=== PATIENT | male | born 1985 | race Caucasian/White ===

== ENCOUNTER 2023-11-21 15:45 | Emergency (ER) | payer OTHER, SELFPAY ==
[2023-11-21 15:54] VITALS: BP 117/106; PULSE 71; TEMP 36.8; O2SAT 99; BMI 25.7
--- NOTE | 2023-11-21 15:57 | XR_ITS ---
The [address] [address] Patient Name: COLLETTE TROY MRN: [id number] date: 1985 Sex: M Assigned Patient Location: ER Current Patient Location: ER Accession/Order Number: [id number] Exam Date: 11/21/2023 16:29 Report Date: 11/21/2023 17:11 At the request of: NGOZI GOINS Procedure: XR hand LT min 3V EXAM: XR hand LT min 3V HISTORY: laceration COMPARISON: 07/13/2018 TECHNIQUE: 3 views of the left hand were obtained. FINDINGS: There is no evidence of an acute fracture or dislocation. The joint spaces are intact. No significant osseous abnormality is identified. Bandaging is seen at the thumb. No radiopaque foreign body is identified. XR/XR hand LT min 3V IMPRESSION: No acute fracture or dislocation. The joint spaces are intact. No radiopaque foreign bodies identified. The overall appearance has not changed significantly. Electronically authenticated by: BRAD BUCHANAN Date: 11/21/2023 17:11
[2023-11-21] MEDS: LIDOCAINE HCL 1% 100 MG/10 ML MDV INJ (17:25)
[2023-11-21] MEDS: BACITRACIN 0.9 GM PACKET 1 PACKET TOPICAL (17:25)
--- NOTE | 2023-11-21 17:37 | ED_ITS ---
HPI - Wound/Laceration General Chief Complaint: Wound/Laceration Stated Complaint: Laceration Time Seen by Provider: 11/21/23 16:56 Source: patient Mode of arrival: walk-in Limitations: no limitations History of Present Illness HPI narrative: Patient is a 38-year-old male who presents to the emergency department for evaluation of a left thumb laceration. Patient is left-hand dominant. He states he was helping a family member move a refrigerator when his finger got caught on a bolt. Bleeding is well-controlled at this time. Unknown last tetanus. No other associated injuries. Related Data Previous Rx's ?Medication ?Instructions ?Recorded cephalexin 500 mg capsule 500 mg PO Q8H 5 days #15 caps 11/21/23 ibuprofen 800 mg tablet 800 mg PO Q8H PRN pain #15 tabs 11/21/23 Allergies Allergy/AdvReac Type Severity Reaction Status Date / Time No Known Drug Allergies Allergy Verified 11/21/23 15:54 Review of Systems ROS Constitutional Denies: fever or chills Ears, nose, mouth, and throat Denies: throat pain or nasal congestion Respiratory Denies: shortness of breath Gastrointestinal Denies: nausea or vomiting Musculoskeletal Reports: extremity pain; Denies: back pain or neck pain Integumentary/Breast Denies: rash Hematologic/Lymphatic Denies: easy bruising or easy bleeding Exam Narrative Exam Narrative: Gen.: Awake, alert, in no distress Head: Normocephalic, atraumatic ENT: Moist mucous membranes Respiratory: No respiratory distress Extremities: Moves extremities equally, 3 cm L-shaped laceration over the IP joint on the dorsum of the left thumb. Normal flexion and extension at the IP joint with no evidence of tendon laceration or deficit on exam. No active bleeding Psych: Normal mood and affect Neuro: No focal neuro deficit Skin: Warm, dry Constitutional Vital Signs, click to edit/add: Last Vital Signs Temp 98.2 F 11/21/23 15:54 Pulse 71 11/21/23 15:54 Resp 18 11/21/23 15:54 BP 117/106 H 11/21/23 15:54 Pulse Ox 99 11/21/23 15:54 O2 Del Method Room Air 11/21/23 15:54 Course Vital Signs Vital signs: Vital Signs Temperature 98.2 F 11/21/23 15:54 Pulse Rate 71 11/21/23 15:54 Respiratory Rate 18 11/21/23 15:54 Blood Pressure 117/106 H 11/21/23 15:54 Pulse Oximetry 99 11/21/23 15:54 Oxygen Delivery Method Room Air 11/21/23 15:54 Temperature 98.2 F 11/21/23 15:54 Pulse Rate 71 11/21/23 15:54 Respiratory Rate 18 11/21/23 15:54 Blood Pressure 117/106 H 11/21/23 15:54 Pulse Oximetry 99 11/21/23 15:54 Oxygen Delivery Method Room Air 11/21/23 15:54 MDM - Wound/Laceration MDM Narrative Medical decision making narrative: X-rays obtained that are unremarkable. Laceration repaired without difficulty. Please see procedure note for details. Tetanus updated in the ER. Follow-up in 7 to 10 days for suture removal and return to the emergency department if symptoms change or worsen SUPERVISED APC VISIT, PHYSICIAN ATTESTATION: Based on the medical record the care appears appropriate. ?Laceration repair: Done under sterile conditions. The use of Shur-Clens prep the area. Local injection with lidocaine 1% was used, approximately 3 cc. The wound was irrigated copiously with normal saline. The wound was explored there was no evidence of foreign material. The laceration was approximated with 4-0 nylon. 5 simple interrupted sutures were placed. Patient tolerated the procedure well. The patient was neurovascularly intact post. the patient had bacitracin applied to the laceration and a dry sterile dressing was place. The patient will need to follow-up in the next 7-10 days for removal Medical Records Attestation: I reviewed the patient's medical records. Imaging Data XR hand: Attestation: I have reviewed the pertinent imaging results. Radiologist's impression: ITS Impressions Hand X-Ray 11/21/23 15:57 IMPRESSION: No acute fracture or dislocation. The joint spaces are intact. No radiopaque foreign bodies identified. The overall appearance has not changed significantly. Electronically authenticated by: BRAD BUCHANAN Date: 11/21/2023 17:11 Discharge Plan Discharge Stand Alone Forms: Portal Instructions Chief Complaint: Wound/Laceration Clinical Impression: Laceration of left thumb Patient Disposition: Home, Self-Care Time of Disposition Decision: 17:35 Condition: Good Prescriptions / Home Meds: New cephalexin 500 mg capsule 500 mg PO Q8H 5 Days Qty: 15 0RF ibuprofen 800 mg tablet 800 mg PO Q8H PRN (Reason: pain) Qty: 15 0RF Print Language: Trinidadian Instructions: Finger Laceration (ED) Additional Instructions: Sutures removed in 7-10 days Referrals: Physician,Non-Staff, MD [Primary Care Provider] - 1 week
[2023-11-21] MEDS: ADACEL DIPH,PERTUSS(ACELL),TET VAC/PF 0.5 ML ADULT SYRINGE IM (17:42)
== END 2023-11-21 17:50 | disposition home or self-care (01) ==
PROVIDERS: Emergency Provider Emergency Medicine
DX: S61.012A Laceration without foreign body of left thumb without damage to nail, initial encounter (principal); Z23 Encounter for immunization; W45.8XXA Other foreign body or object entering through skin, initial encounter
CPT/HCPCS: 12002; 73130; 90471; 90715; 99283

== ENCOUNTER 2024-08-23 11:53 | Emergency (ER) | payer OTHER, SELFPAY ==
--- OUTSIDE RECORDS SUMMARY | 2020-01-23 20:12 | XMS_ITS | Continuity of Care Document ---
Author Organization [facility] Address [address] [place] [address] Phone Care Team Providers Care Trash Man Name Role Phone Pavlock DO, Max Unavailable Unavailable Allergies, Adverse Reactions, Alerts Substance Reaction Status Criticality PENICILLIN Active No Information codeine Active No Information Medications Medication Instructions Dosage Effective Dates (start - stop) Status Comments folic acid 1 mg tablet 1 tablet by mouth daily as needed - Active omeprazole 20 mg capsule,delayed release 1 tablet by mouth daily as needed - Active thiamine HCl (vitamin B1) 100 mg tablet 1 tablet by mouth daily as needed - Active dicyclomine 20 mg tablet 20mg PO Q6H PRN abdominal cramping as needed - Active Imodium A-D 2 mg capsule 2mg PO PRN after each loose stool as needed - Active Do not exceed 16mg in 24 hours magnesium citrate (bulk) powder 1 bottle 12 hours after second Milk of Magnesia with continued constipation as needed - Active Colace 100 mg capsule 100mg PO BID PRN constipation as needed - Active calcium carbonate (bulk) powder 10mL PO TID PRN heartburn/indigest ion as needed - Active Tums 200 mg calcium (500 mg) chewable tablet 1-2 tablets PO TID PRN heartburn/digestio n as needed - Active ibuprofen 600 mg tablet 600mg PO Q6H PRN pain as needed - Active Acetaminophen Extra Strength 500 mg tablet 1000mg PO Q4H PRN pin or temperature >99 F as needed - Active Do not exceed 4000mg in a 24 hour period. promethazine 25 mg tablet 25mg PO Q8H PRN nausea and vomiting as needed - Active Zofran 8 mg tablet 8mg PO Q6H PRN nausea and vomiting as needed - Active promethazine 25 mg/mL injection solution 25mg IM Q8H PRN nausea and vomiting as needed - Active if unable to tolerate PO hydroxyzine pamoate 50 mg capsule 50mg PO Q6H PRN anxiety as needed - Active doxepin 25 mg capsule 25mg PO QHS PRN insomnia as needed - Active Do not combine with other sleep aids. trazodone 50 mg tablet 50mg PO QHS PRN insomnia as needed - Active cyclobenzaprine 10 mg tablet 10mg PO Q6H PRN pain and muscle spasms as needed - Active ropinirole 1 mg tablet 1mg PO TID PRN restless legs as needed - Active melatonin 10 mg tablet 10mg 1 tablet PO QHS as needed - Active Give between 6pm and 11pm. 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 [address], [place], [id number] , [place]. tel: [phone] [facility], [address], [place], [id number] , [place] tel: [phone] [facility] Alcohol dependence with withdrawal, unspecifiedOpioid dependence with withdrawal 0 Pavlock DO Max. [address], [place], [id number] , [place]. tel: [phone] [facility], [address] [place] [address], [id number] , [place] tel: [phone] [facility] Opioid dependence with withdrawalAlcohol dependence with withdrawal, unspecified 0 Pavlock DO Max. [address], [place], [id number] , [place]. tel: [phone] [facility], [address] [place] [address], [id number] , [place] tel: [phone] [facility] substance abuse (chief complaint) Opioid dependence with withdrawalAlcohol dependence with withdrawal, unspecified 0 Pavlock DO Max. [address], [place], [id number] , [place]. tel: [phone] [facility], [address] [place] [address], [id number] , [place] tel: [phone] [facility] Opioid dependence with withdrawalAlcohol dependence with withdrawal, unspecified 0 Pavlock DO Max. [address], [place], [id number] , [place]. tel: [phone] Family History Family Member Type Diagnosis Age At Onset No Information Payers Payer name Insurance type Covered alliance party ID Authoriza tion(s) No Information Social History Type Description Quantity Date Captured Comments Alcohol Use Details Caffeine Use Details Unknown Tobacco Use Status No Information Smoking Status No Information Sex Male Sexual Orientation Don't Know Gender Identity Male Vital Signs Date / Time: Height Weight BMI Pulse Rate Blood Pressure Temperature Respiratory Rate Body Surface Area Head Circumference Head Circ. Percentile Wt./[place]. Percentile BMI percentile Pulse Ox Inhaled Ox 12:06 PM 100 /min 151/91 mm[Hg] 98.70 F 100 % Chief Complaint And Reason For Visit No Information Reason For Referral Reason For Referral No Information History Of Present Illness Encounter Date Complaint History Of Prese nt Illness substance abuse this 34 year old male pt has been using pills for the last 10 years, he as been using alcohol to control his pill abuse. Pt states he has tried to stop using the pills because he has lost his house and living in his care and spending all his time trying to get them. Pt notes that today he is having muscle aches and chills but feels better on the PRN meds for the withdrawal symptoms Patient denies other past medical history including chronic pain, asthma and coronary artery disease. Functional Status Date Functional Assessmen t No Information Instructions Date Instruction Additional Infor mation Encourage PO fluids - Related to Opioid dependence with withdrawal Assessments Type Assessment Date assessment Alcohol dependence with withdraw al, unspecified assessment Opioid dependence with withdrawa l Mental Status Date Cognitive Assessment Orientation - [place] ed to time, place, person, situation.Normal Orientation Patient Care Teams Name Effective Dates (start - stop) Status Members No Information
[2024-08-23 11:56] VITALS: BP 157/94; PULSE 79; TEMP 37.4; O2SAT 100; BMI 26.4
--- NOTE | 2024-08-23 12:13 | ED.GENADUL1 ---
HPI HPI - General Adult General Chief complaint: Dental/Oral Stated complaint: DENTAL JAW PAINS Time Seen by Provider: 08/23/24 12:04 Source: patient Mode of arrival: walk-in History of Present Illness HPI narrative: 38-year-old male presents for pain to his left upper dentition. He states 2 days ago he was eating a hot pocket and developed pain. No difficulty breathing or swallowing. His left ear has been hurting a little bit as well. No drainage from his ear. The pain is moderate and he does not have a dentist. Related Data Previous Rx's ?Medication ?Instructions ?Recorded ibuprofen 800 mg tablet 800 mg PO Q8H PRN pain #15 tabs 11/21/23 clindamycin HCl 300 mg capsule 300 mg PO Q6H 10 days #40 caps 08/23/24 ibuprofen 800 mg tablet 800 mg PO Q8H PRN pain #20 tabs 08/23/24 Allergies Allergy/AdvReac Type Severity Reaction Status Date / Time Penicillins Allergy Severe Hives Verified 08/23/24 12:00 Review of Systems ROS Narrative A ten point review of systems is negative except as noted above. PFSH PFSH Social History Little interest or pleasure in doing things: not at all Feeling down, depressed, or hopeless: not at all Exam Narrative Exam Narrative: Nurses note and vital signs reviewed and patient is not hypoxic. General: The patient appears well and in no apparent distress. Patient is resting comfortably on cart. Skin: Warm, dry, no pallor noted. There is no rash noted. Head: Normocephalic, atraumatic Eye: Normal conjunctiva, no drainage Ears, Nose, Mouth, and Throat: oral mucosa is moist. Nares patent. No facial swelling or erythema. No gingival swelling or erythema. The floor of his mouth is not swollen. Cardiovascular: Regular Rate and Rhythm Respiratory: Patient is in no distress, no accessory muscle use, lungs are clear to auscultation, no wheezing, rales or rhonchi Back: non-tender GI: Soft and nontender Musculoskeletal: The patient has no evidence of calf tenderness, no pitting edema, symmetrical pulses noted bilaterally Neurological: A&O, normal speech Psychiatric: Cooperative Constitutional Vital Signs, click to edit/add: Last Vital Signs Temp 99.4 F 08/23/24 11:56 Pulse 79 08/23/24 11:56 Resp 18 08/23/24 11:56 BP 157/94 H 08/23/24 11:56 Pulse Ox 100 08/23/24 11:56 O2 Del Method Room Air 08/23/24 11:56 Course Vital Signs Vital signs: Vital Signs Temperature 99.4 F 08/23/24 11:56 Pulse Rate 79 08/23/24 11:56 Respiratory Rate 18 08/23/24 11:56 Blood Pressure 157/94 H 08/23/24 11:56 Pulse Oximetry 100 08/23/24 11:56 Oxygen Delivery Method Room Air 08/23/24 11:56 Temperature 99.4 F 08/23/24 11:56 Pulse Rate 79 08/23/24 11:56 Respiratory Rate 18 08/23/24 11:56 Blood Pressure 157/94 H 08/23/24 11:56 Pulse Oximetry 100 08/23/24 11:56 Oxygen Delivery Method Room Air 08/23/24 11:56 Medical Decision Making [facility] Narrative Medical decision making narrative: I suspect his pain is coming from his left maxillary third molar. He was prescribed clindamycin and ibuprofen. He requested nothing stronger for pain. He was given dental list for follow-up. Treatment diagnosis and follow-up were discussed with the patient. Differential Diagnosis Differential Diagnosis: Dental caries, gingivitis, dental abscess Discharge Plan Discharge Chief Complaint: Dental/Oral Clinical Impression: Pain, dental Patient Disposition: Home, Self-Care Time of Disposition Decision: 12:11 Condition: Good Mode of Transportation: Private Vehicle Prescriptions / Home Meds: New ibuprofen 800 mg tablet 800 mg PO Q8H PRN (Reason: pain) Qty: 20 0RF clindamycin HCl 300 mg capsule 300 mg PO Q6H 10 Days Qty: 40 0RF No Action ibuprofen 800 mg tablet 800 mg PO Q8H PRN (Reason: pain) Qty: 15 0RF Print Language: Moroccan Instructions: Toothache (ED) Additional Instructions: Follow-up with dentist, list provided Referrals: Physician,Non-Staff, MD [Primary Care Provider] - 1 week
== END 2024-08-23 12:15 | disposition home or self-care (01) ==
PROVIDERS: Emergency Provider Emergency Medicine
DX: K08.89 Other specified disorders of teeth and supporting structures (principal)
CPT/HCPCS: 99283

== ENCOUNTER 2024-12-30 11:05 | Emergency (ER) | payer OTHER, SELFPAY ==
--- OUTSIDE RECORDS SUMMARY | 2024-11-20 16:29 | XMS_ITS ---
Author Organization [facility] Care Team Providers Care Trimming Caser Name Role Phone NO PCP, NO PCP Primary Care Unavailable FIDELINA SARAH Attending Unavailable Purpose PROBLEMS DATE TYPE CONDITION / CODE [facility] Unknown Laceration witho ut foreign body of left upper arm, initial encounter / S41.112A(ICD-10) FIDELINA SARAH [facility] 11/20/2024 Unknown Laceration / FREETEXT(AOF) FIDELINA SARAH [facility] 11/20/2024 Unknown Laceration / UNK(Unknown) FIDELINA SARAH [facility] PROCEDURES No Procedure Records Found VITAL SIGNS No Vital Signs Records Found RESULTS No Result Records Found ALLERGIES DATE TYPE / CODE NAME / CODE REACTION SEVERITY SOURCE 11/10/2020 DRUG INGREDI/[id number](SN OMED CT) CODEINE [facility] 11/10/2020 Drug Class/585885580(SNOM ED CT) PENICILLINS Hives [facility] ENCOUNTERS ADMIT/DISCHARGE ACCOUNT NUMBER ADMITTING ENCOUNTER CLASS LOCATION SOURCE 11/20/2024/ 5 [id number] Emergency Building:[facility]_ EDRoom: 10Bed: 10 [facility] FUNCTIONAL STATUS No Functional Status Records Found EQUIPMENT No Equipment Records Found PAYERS ENCOUNTER GUARANTOR PAYER SUBSCRIBER SOURCE 11/20/2024 COLLETTE ROBERTSMANDOB: [id number] [place], [place] [address]Mez: (HP) Primary Insurance:[place] MEDICAIDPolicy Number: [id number] Date:2021-05-05 COLLETTE ROBERTSMANDOB: [id number] [place], [place] [address]Gxl: () [facility] SOCIAL HISTORY No Social History Records Found FAMILY HISTORY No Family History Records Found No Status Records Found ADVANCE DIRECTIVES No Advanced Directives Records Found INFORMATION SOURCE DATE CREATED AUTHOR AUTHOR'S ROGELIO ATION 12/30/2024 [place]
[2024-12-30 11:14] VITALS: BP 139/98; PULSE 95; TEMP 36.7; O2SAT 98; BMI 26.4
[2024-12-30 11:21] VITALS: O2SAT 98
--- NOTE | 2024-12-30 11:24 | XR_ITS ---
The [place] [id number] Patient Name: COLLETTE TROY MRN: [id number] date: 1985 Sex: M Assigned Patient Location: ED.MAIN Current Patient Location: ED.MAIN Accession/Order Number: [id number] Exam Date: 12/30/2024 11:59 Report Date: 12/30/2024 12:32 At the request of: DAVIAN WHEELER MD Procedure: XR shoulder LT min 2V XR shoulder LT min 2V 12/30/2024 12:07 PM SIGNS AND SYMPTOMS: ^Atraumatic pain PROTOCOL: 3 views of the left shoulder COMPARISON: None FINDINGS: The joint spaces are preserved. No acute bony injury. Visualized left hemithorax is grossly intact. XR/XR shoulder LT min 2V IMPRESSION: No acute bony injury or significant degenerative change. Impression dictated by: Gómez Hamilton M.D. 12/30/2024 12:32 PM [facility] Electronically authenticated by: [id number] Y Date: 12/30/2024 12:32
--- NOTE | 2024-12-30 11:25 | ED_ITS ---
HPI HPI - General Adult General Chief complaint: Extremity Problem, Nontraumatic Stated complaint: SHOULDER PAIN Time Seen by Provider: 12/30/24 11:17 History of Present Illness HPI narrative: 39-year-old male presented to the emergency department for left shoulder pain. He states his shoulder has been messed up for a long time and recently he was lifting some heavy items and the pain has increased. He is left-handed. No weakness or numbness in his arm. He has been able to lift his elbow above his shoulder for years and he never sought medical care for it and has not seen an orthopedist for it. Related Data Previous Rx's ?Medication ?Instructions ?Recorded ibuprofen 800 mg tablet 800 mg PO Q8H PRN pain #15 t abs 11/21/23 clindamycin HCl 300 mg capsule 300 mg PO Q6H 10 days # 40 caps 08/23/24 ibuprofen 800 mg tablet 800 mg PO Q8H PRN pain #20 t abs 08/23/24 ibuprofen 800 mg tablet 800 mg PO Q8H PRN pain #20 t abs 12/30/24 Allergies Allergy/AdvReac Type Severity Reaction Status Date / Time Penicillins Allergy Severe Hives Verified 12/30/24 11:14 Opioid HPI Opioid Management Most Recent Opioid Data: Last Pain Scale 5 Today, 11:19 Review of Systems ROS Narrative A ten point review of systems is negative except as noted above. PFSH PFSH Social History Little interest or pleasure in doing things: not at all Feeling down, depressed, or hopeless: not at all Exam Narrative Exam Narrative: Nurses note and vital signs reviewed and patient is not hypoxic. General:The patient appears well and in no apparent distress.Patient is resting comfortably on cart. Skin:Warm, dry, no pallor noted.There is no rash noted. Head:Normocephalic, atraumatic Eye: Normal conjunctiva, no drainage Ears, Nose, Mouth, and Throat: oral mucosa is moist. Nares patent. Cardiovascular:Regular Rate and Rhythm Respiratory:Patient is in no distress, no accessory muscle use Back:non-tender GI: Soft and nontender Musculoskeletal: Left arm is examined. There is no swelling. Radial pulse 2+ and wrist and elbow have full range of motion. He is not fully able to abduct his arm. There is no palpable tenderness bruise or rash in his shoulder. Neurological:A&O, normal speech Psychiatric:Cooperative Constitutional Vital Signs, click to edit/add: Last Vital Signs Temp 98.1 F 12/30/24 11:14 Pulse 95 H 12/30/24 11:14 Resp 12/30/24 11:14 BP 139/98 H 12/30/24 11:14 Pulse Ox 98 12/30/24 11:21 O2 Del Method Room Air 12/30/24 11:21 Course Vital Signs Vital signs: Vital Signs Temperature 98.1 F 12/30/24 11:14 Pulse Rate 95 H 12/30/24 11:14 Respiratory Rate 12/30/24 11:14 Blood Pressure 139/98 H 12/30/24 11:14 Pulse Oximetry 98 12/30/24 11:14 Oxygen Delivery Method Room Air 12/30/24 11:14 Temperature 98.1 F 12/30/24 11:14 Pulse Rate 95 H 12/30/24 11:14 Respiratory Rate 12/30/24 11:14 Blood Pressure 139/98 H 12/30/24 11:14 Pulse Oximetry 98 12/30/24 11:21 Oxygen Delivery Method Room Air 12/30/24 11:21 Medical Decision Making MDM Narrative Medical decision making narrative: X-rays on my interpretation showed no acute findings. He is referred to orthopedics. 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 He is requesting ibuprofen 800 mg tablets. Treatment diagnosis and follow-up were discussed with the patient. Differential Diagnosis Differential Diagnosis: Rotator cuff injury, shoulder strain, calcific tendinitis Imaging Data Left shoulder x-ray: My impression: No acute findings Discharge Plan Discharge Chief Complaint: Extremity Problem, Nontraumatic Clinical Impression: Left shoulder pain Patient Disposition: Home, Self-Care Time of Disposition Decision: 12:20 Condition: Good Mode of Transportation: Private Vehicle Prescriptions / Home Meds: New ibuprofen 800 mg tablet 800 mg PO Q8H PRN (Reason: pain) Qty: 20 0RF No Action ibuprofen 800 mg tablet 800 mg PO Q8H PRN (Reason: pain) Qty: 15 0RF ibuprofen 800 mg tablet 800 mg PO Q8H PRN (Reason: pain) Qty: 20 0RF clindamycin HCl 300 mg capsule 300 mg PO Q6H 10 Days Qty: 40 0RF Print Language: Urdu Instructions: Shoulder Pain (ED) Referrals: Physician,Non-Staff, [Primary Care Provider] - 1 week Kayode Sauceda MD [Physician, Orthopedics]
[2024-12-30 12:39] VITALS: BP 145/82; PULSE 77; O2SAT 98
== END 2024-12-30 12:41 | disposition home or self-care (01) ==
PROVIDERS: Emergency Provider Emergency Medicine
DX: M25.512 Pain in left shoulder (principal); F19.21 Other psychoactive substance dependence, in remission
CPT/HCPCS: 73030; 99283